=== PATIENT | female | born 1990 | race Two or more races ===

== ENCOUNTER 2017-06-16 22:54 | Emergency (ER) | payer OTHER ==
[~2017-06-16] VITALS: Ht 165.1 cm; Wt 52.2 kg
[2017-06-16 22:55] VITALS: BP 108/61
[2017-06-17 00:55] VITALS: BP 114/73
--- NOTE | 2017-06-17 01:32 | Emergency Room Report ---
History of Present Illness General Chief Complaint: Alcohol Intoxication Source: Family Member Present Illness HPI 27-year-old female presents ED for evaluation. Per EMS patient was found sleeping in a bar. Family at bedside states that patient always falsely Dr. having a few drinks. Patient was initially vomiting but not vomiting at this time. Patient is unable to provide any additional history at this time. Family states that patient did not fall or hit her head. No reported drug use. No signs of distress. No aggravating relieving factors. No other associated symptoms Allergies: Coded Allergies: No Known Allergies (Unverified , 06/16/17) Patient History Past Medical History: none Past Surgical History: none Pertinent Family History: none Social History: Reports: alcohol use, Denies: drug use, smoking Now: No Immunizations: UTD Reviewed Nursing Documentation: PMH: Agreed, PSxH: Agreed Nursing Documentation-PMH Past Medical History: No Stated History Review of Systems All Other Systems: limited Physical Exam Vital Signs Date Time Temp Pulse Resp B/P Pulse Ox O2 Delivery O2 Flow Rate FiO2 06/16/17 22:54 80 16 119/71 99 Room Air 06/16/17 22:55 98.1 Sp02 EP Interpretation: reviewed, normal General Appearance: no apparent distress, GCS 15, non-toxic, lethargic Head: normocephalic, atraumatic Eyes: bilateral eye PERRL, bilateral eye normal inspection ENT: hearing grossly normal, normal pharynx, no angioedema, normal voice Neck: full range of motion, supple/symm/no masses Respiratory: chest non-tender, lungs clear, normal breath sounds, speaking full sentences Cardiovascular #1: regular rate, rhythm, no edema Cardiovascular #2: 2+ carotid (R), 2+ carotid (L), 2+ radial (R), 2+ radial (L) , 2+ dorsalis pedis (R), 2+ dorsalis pedis (L) Gastrointestinal: normal bowel sounds, non tender, soft, non-distended, no guarding, no rebound Rectal: deferred Genitourinary: normal inspection, no CVA tenderness Musculoskeletal: back normal, gait/station normal, normal range of motion, non- tender Neurologic: other - intoxicated Psychiatric: other - intoxiciated Reflexes: 3+ bicep (R), 3+ bicep (L), 3+ tricep (R), 3+ tricep (L), 3+ knee (R) , 3+ knee (L) Skin: normal color, no rash, warm/dry, well hydrated Lymphatic: no adenopathy Medical Decision Making Diagnostic Impression: Primary Impression: Acute alcoholic intoxication Qualified Codes: F10.920 - Alcohol use, unspecified with intoxication, uncomplicated ER Course Hospital Course 27-year-old female presents to ED status post EtOH intoxication. Clinical course Patient placed on stretcher. Initial history and physical I ordered IV fluids, Zofran Patient allowed to sleep. My assessment shows no evidence of SI/HI requiring psychiatric evaluation. Patient allowed to rest in now awake alert oriented x3. ambulating without difficulty. Diagnosis - ETOH intoxication stable and discharged to home. Followup with PMD. Return to ED if symptoms recur or worsen Last Vital Signs Date Time Temp Pulse Resp B/P Pulse Ox O2 Delivery O2 Flow Rate FiO2 06/16/17 22:55 98.1 64 15 108/61 100 Room Air Status: improved Disposition: HOME, SELF-CARE Condition: Stable Referrals: [facility] (PCP) NUBIA STEARNS M.D. Jun 17, 2017 01:32
[2017-06-17 02:55] VITALS: BP 106/63
[2017-06-17 04:55] VITALS: BP 105/55
[2017-06-17 05:22] VITALS: BP 109/62
== END 2017-06-17 05:22 | disposition home or self-care (01) ==
LOC: EDBD 22:54 → EMR 23:17
DX: F10.920 Alcohol use, unspecified with intoxication, uncomplicated (principal)
CPT/HCPCS: 96360; 96374; 99284; J2405